=== PATIENT | male | born 1970 | race African-American/Black ===

== ENCOUNTER 2022-08-16 14:16 | Emergency (ER) | payer BC, SELFPAY ==
[2022-08-16] MEDS ORDERED: Sodium Chloride 0.9% 1,000 ML ONE ×2 (14:49→15:36)
[2022-08-16 15:07] LABS: #Basophils 0.1 thou/uL (0.0-0.2); #Eosinphils 0.1 thou/uL (0.0-0.7); #Lymphocytes 2.2 thou/uL (1.20-3.40); #Monocytes 0.6 thou/uL (0.11-0.59); #Neutrophils 6.7 thou/uL (1.40-6.50); %Basophils 1.4 % (0.0-1.0); %Eosinophils 0.6 % (0.0-10.0); %Lymphocytes 22.8 % (21.0-51.0); %Monocytes 6.2 % (0.0-10.0); Hemoglobin 15.5 g/dL (14.0-18.0); Mean Corpuscular HGB CONC 33.5 g/dL (32.0-36.0); Mean Corpuscular Hemoglobin 28.2 pg (27.0-31.0); Mean Corpuscular Volume 84.2 fl (78.0-98.0); Platelet Count 398 10x3/uL (130-400); RBC Distribution Width 9.7 % (11.5-14.5); Red Blood Cell (RBC) Count 5.49 mill/uL (4.70-6.10); White Blood Cell (WBC) Count 9.7 10x3/uL (4.8-10.8)
[2022-08-16 15:21] LABS: Bilirubin Negative (Negative); Blood, Urine Negative (Negative); Glucose, Urine (Dipstick) 500 mg/dL (Negative); Ketone, Urine 40 mg/dL (Negative); Leukocyte Negative (Negative); Nitrite Negative (Negative); Protein, Urine (Dipstick) Negative (Neg-Trace); Urobilinogen 0.2 mg/dL (Less than 2)
[2022-08-16 15:22] LABS: ALT (SGPT) 32 U/L (8-55); AST (SGOT) 18 U/L (5-34); Albumin 4.4 g/dL (3.5-5.0); Alkaline Phosphatase 99 U/L (40-110); Anion Gap 20 mmol/L (10-20); BUN (Urea Nitrogen) 13 mg/dL (8.9-20.6); Bilirubin, Total 0.7 mg/dL (0.2-1.2); Calc. Creatinine Clearance 0 mL/min (70-130); Calcium 10.3 mg/dL (7.8-10.44); Carbon Dioxide 21 mmol/L (22-29); Chloride 88 mmol/L (98-107); Estimated GFR 48; Globulin 4.1 g/dL (2.4-3.5); Lipase 40 U/L (8-78); Magnesium 2.2 mg/dL (1.6-2.6); Potassium 4.5 mmol/L (3.5-5.1); Protein, Total 8.5 g/dL (6.0-8.3); Sodium 124 mmol/L (136-145)
[2022-08-16 15:23] LABS: Glucose 691 mg/dL (70-105)
[2022-08-16 15:26] LABS: Specific Gravity, Urine 1.034 (1.002-1.036)
[2022-08-16 15:27] LABS: Clarity Clear (Clear)
[2022-08-16 15:29] LABS: Base Excess-Venous -0.8 mmol/L (-2.0 to 3.0); Bicarbonate (HCO3v) 25.7 mmol/L (22.0-28.0); CO2 Tension (PvCO2) 47.3 mmHg (42.0-51.0); Calcium, Ionized 1.19 mmol/L (1.15-1.33); Chloride 95 mmol/L (98-107); Hemoglobin - Calc 18.3 g/dL (14.0-18.0); Potassium 4.9 mmol/L (3.5-5.1); Sodium 127 mmol/L (138-145); T. Carbon Dioxide 27.1 mmol/L (22.0-28.0); vO2 Saturation-calc 99.3 % (60.0-85.0)
[2022-08-16 15:53] LABS: SARS-CoV-2 NAA Rapid Test Not Detected (NotDetected)
[2022-08-16] MEDS ORDERED: metFORMIN 500 MG TAB ONE (16:13)
[2022-08-16 17:09] LABS: Base Excess-Venous -1.8 mmol/L (-2.0 to 3.0); Bicarbonate (HCO3v) 25.4 mmol/L (22.0-28.0); CO2 Tension (PvCO2) 51.1 mmHg (42.0-51.0); Calcium, Ionized 1.15 mmol/L (1.15-1.33); Chloride 100 mmol/L (98-107); Hemoglobin - Calc 16.2 g/dL (14.0-18.0); Potassium 4.9 mmol/L (3.5-5.1); Sodium 132 mmol/L (138-145); vO2 Saturation-calc 86.5 % (60.0-85.0)
[2022-08-16 17:11] LABS: ALT (SGPT) 27 U/L (8-55); AST (SGOT) 15 U/L (5-34); Albumin 3.8 g/dL (3.5-5.0); Alkaline Phosphatase 85 U/L (40-110); Anion Gap 18 mmol/L (10-20); BUN (Urea Nitrogen) 11 mg/dL (8.9-20.6); Bilirubin, Total 0.5 mg/dL (0.2-1.2); Calc. Creatinine Clearance 0 mL/min (70-130); Calcium 9.3 mg/dL (7.8-10.44); Carbon Dioxide 22 mmol/L (22-29); Chloride 96 mmol/L (98-107); Estimated GFR 57; Globulin 3.5 g/dL (2.4-3.5); Potassium 4.8 mmol/L (3.5-5.1); Protein, Total 7.3 g/dL (6.0-8.3); Sodium 131 mmol/L (136-145)
[2022-08-16 17:13] LABS: Glucose 479 mg/dL (70-105)
== END 2022-08-16 17:09 | disposition home or self-care (01) ==
LOC: EDBD 14:16 → MADERS 14:16
DX: E11.65 Type 2 diabetes mellitus with hyperglycemia (principal); I10 Essential (primary) hypertension; F17.210 Nicotine dependence, cigarettes, uncomplicated; Z20.822 Contact with and (suspected) exposure to COVID-19
CPT/HCPCS: 36416; 71045; 80053; 81003; 82330; 82803; 83605; 83690; 83735; 83880; 84484; 85025; 87040; 87086; 93005; 96360; 96361; J7050

== ENCOUNTER 2024-06-25 13:51 | Emergency (ER) | payer BC | END 2024-06-25 15:00 | disposition home or self-care (01) | LOC: MADERS 13:51 | DX: S16.1XXA Strain of muscle, fascia and tendon at neck level, initial encounter (principal); E04.1 Nontoxic single thyroid nodule; E11.9 Type 2 diabetes mellitus without complications; I10 Essential (primary) hypertension; F17.210 Nicotine dependence, cigarettes, uncomplicated; Z79.899 Other long term (current) drug therapy; Z79.84 Long term (current) use of oral hypoglycemic drugs | CPT/HCPCS: 72125 ==